=== PATIENT | male | born 1955 | race Caucasian/White ===

== ENCOUNTER 2022-05-19 14:57 | Outpatient (REF) | payer OTHER, SELFPAY ==
[2022-05-19 15:59] LABS: TSH (W/Ref FT4) 3.44 uIU/mL (0.36-3.74)
== END 2022-05-19 14:58 | disposition home or self-care (01) ==
LOC: LBN 14:57
PROVIDERS: Visit Provider Physician Assistant Medical
DX: E03.9 Hypothyroidism, unspecified (principal)
CPT/HCPCS: 84443

== ENCOUNTER 2022-09-06 02:52 | Outpatient (CLI) | payer OTHER, SELFPAY ==
[2022-09-06 09:18] LABS: HCT 44.2 % (40.0-50.0); HGB 15.1 g/dL (13.5-17.5); MCH 30.3 pg (27.0-33.0); MCHC 34.2 % (32.0-36.0); MCV 89 fL (80-95); MPV 9.8 fL (8.0-11.0); Platelet Count 233 10^3/uL (130-400); RBC 4.99 10^6/uL (4.36-5.78); RDW 12.5 % (11.8-14.1); RDW-SD 40.6 fL; WBC 8.15 10^3/uL (4.4-10.8)
[2022-09-06 10:12] LABS: ALT 25 U/L (16-63); AST 24 U/L (15-37); Albumin 3.3 g/dL (3.4-5.0); Alkaline Phosphatase 67 U/L (46-116); Anion Gap 8.2 mmol/L (3-11); BUN 16 mg/dL (7-18); Bilirubin, Total 0.7 mg/dL (0.2-1.0); CO2 23.8 mmol/L (21.0-32.0); CREATININE 1.1 mg/dL (0.70-1.30); Calcium 8.5 mg/dL (8.5-10.1); Calculated LDL 142 mg/dL (<100); Chloride 105 mmol/L (98-107); Cholesterol 199 mg/dL (<200); Estimated GFR 73.12 (mL/min/1.73m2); Glucose 101 mg/dL (74-106); HDL Cholesterol 44 mg/dL (40-60); Sodium 137 mmol/L (136-145); TSH (W/Ref FT4) 4.56 uIU/mL (0.36-3.74); Total Protein 7.5 g/dL (6.4-8.2); Triglyceride 67 mg/dL (<150)
[2022-09-06 10:42] LABS: FREE T4 1.06 ng/dL (0.76-1.46)
[2022-09-07 10:23] LABS: Hepatitis C Ab w Rflx HCV PCR Negative (Negative)
== END 2022-09-06 02:53 | disposition home or self-care (01) ==
LOC: LBO 02:52
PROVIDERS: PCP Nurse Practitioner; Visit Provider Nurse Practitioner
DX: E03.9 Hypothyroidism, unspecified (principal); I10 Essential (primary) hypertension; E66.8 Other obesity; Z11.59 Encounter for screening for other viral diseases
CPT/HCPCS: 36415; 80053; 80061; 85027; 86803; 84439; 84443

== ENCOUNTER 2022-11-10 08:04 | Outpatient (CLI) | payer OTHER, SELFPAY ==
--- NOTE | 2022-11-10 08:00 | RT.EKG_ITS ---
APPROVED REPORT Exam: Resting ECG Reason for Exam: EVALUATION OF CARDIAC STATUS PRIOR TO MED Patient Location: O HR:88 bpm ECG Measurements Heart Rate 88 AXIS VT 145 P 73 QRSd 80 QRS 48 QT 352 T 61 QTc 426 Conclusion Sinus rhythm...normal P axis, V-rate 50- 99 Normal Electrocardiogram
== END 2022-11-10 08:05 | disposition home or self-care (01) ==
LOC: DI.KIM 08:04
PROVIDERS: PCP Nurse Practitioner; Visit Provider Nurse Practitioner
DX: Z51.81 Encounter for therapeutic drug level monitoring (principal)
CPT/HCPCS: 93010

== ENCOUNTER 2023-01-16 13:20 | Outpatient (CLI) | payer OTHER, SELFPAY ==
--- NOTE | 2023-01-16 10:53 | DI.RAD_ITS ---
Exam(s) XR RIBS RT W PA LAT CHEST EXAM: XR RIBS RT W PA LAT CHEST CLINICAL HISTORY: right rib/chest pain for 2 mos, R07.81-PLEURODYNIA TECHNIQUE: 2D digital imaging was performed. COMPARISON: No exams were available for comparison FINDINGS: RIBS 3 VIEWS-right There are no obvious acute rib fractures evident. No lytic rib lesions identified. CXR- 2 VIEWS: No lung contusion or pneumothorax. There is no pleural effusion evident. Heart size is normal and there is no significant mediastinal widening. IMPRESSION: 1. No obvious rib fractures evident. Also no significant rib lesions. 2. No ipsilateral lung nor pleural abnormality evident. No pneumothorax. DATA REPOSITORY: RADIATION DOSE DELIVERED:
== END 2023-01-16 13:40 ==
LOC: DI 13:22
PROVIDERS: PCP Nurse Practitioner; Visit Provider Nurse Practitioner
DX: R07.81 Pleurodynia (principal)
CPT/HCPCS: 71046; 71100

== ENCOUNTER 2023-02-27 03:00 | Outpatient (CLI) | payer OTHER, SELFPAY ==
[2023-02-27 15:28] LABS: Anion Gap 8.9 mmol/L (3-11); BUN 23 mg/dL (7-18); CO2 25.1 mmol/L (21.0-32.0); CREATININE 1.3 mg/dL (0.70-1.30); Calcium 8.8 mg/dL (8.5-10.1); Chloride 105 mmol/L (98-107); Estimated GFR 59.47 (mL/min/1.73m2); Glucose 146 mg/dL (74-106); Potassium 3.7 mmol/L (3.5-5.1); Sodium 139 mmol/L (136-145); TSH (W/Ref FT4) 5.09 uIU/mL (0.36-3.74)
[2023-02-27 15:48] LABS: FREE T4 1.03 ng/dL (0.76-1.46)
== END 2023-02-27 03:01 | disposition home or self-care (01) ==
LOC: LBO 03:00
PROVIDERS: PCP Nurse Practitioner; Referring Provider Nurse Practitioner; Visit Provider Nurse Practitioner
DX: E03.9 Hypothyroidism, unspecified (principal)
CPT/HCPCS: 36415; 80048; 84439; 84443

== ENCOUNTER → 2024-02-22 13:52 | Outpatient (BNVA) | payer MEDICARE, SELFPAY | PROVIDERS: PCP Nurse Practitioner; Referring Provider Nurse Practitioner; Visit Provider Physical Therapy Assistant | DX: Z12.11 Encounter for screening for malignant neoplasm of colon (principal); R19.5 Other fecal abnormalities; Z80.0 Family history of malignant neoplasm of digestive organs ==

== ENCOUNTER 2024-03-07 09:17 | Day surgery (SDC) | payer MEDICARE, SELFPAY ==
[2024-03-07 09:33] VITALS: BP 133/65; PULSE 55; RESP 16; TEMP 36.3; O2SAT 98
[2024-03-07] MEDS: Lactated Ringers 1,000 ML 80 ML IV (09:46)
[2024-03-07 10:06] VITALS: BMI 29.6
--- NOTE | 2024-03-07 10:06 | W.ANESPRE ---
General Info Date of Service Date Performed: 03/07/24 Height: 5 ft 7 in Weight: 85.9 kg Body Mass Index (BMI): 29.6 Surgical Procedure: Operation Date: 03/07/24 10:35 Proposed Procedure Side Surgeon p Melvin Vaughn MD Meds Allergies and Home Medications Allergies Allergy/AdvReac Type Severity Reaction Status Date / Time No Known Allergies Allergy Verified 03/07/24 09:31 Home Medication Medication Instructions Recorded valacyclovir 500 mg tablet 500 mg PO DAILY #90 tabs 08/21/23 levothyroxine 25 mcg tablet 25 mcg PO DAILY #90 tabs 11/13/23 sildenafil 100 mg tablet 100 mg PO DAILY PRN sexual 01/15/24 activity #20 tabs bisacodyl 5 mg tablet,delayed 5 mg PO ONCE Colonoscopy Bowel 02/29/24 release Prep #4 tabs polyethylene glycol 3350 17 238 g PO ONCE #238 grams 02/29/24 gram/dose oral powder Current Visit Medications: Current Medications Generic Name Dose Route Start Last Admin Trade Name Freq PRN Reason Stop Dose Admin Ringer's Solution 1,000 mls @ 80 mls/hr 03/07/24 06:00 03/07/24 09:46 IV 03/07/24 23:59 80 mls/hr INFUSION JAN Administration IV Miscellaneous Supplies 1 each 03/07/24 06:00 Iv Access IV 03/07/24 23:59 DIRECTED JAN Sodium Chloride 0 ml 03/07/24 06:00 Normal Saline Flush 10 Ml Syr IV 03/07/24 23:59 PRN PRN Sodium Chloride 0 ml 03/07/24 06:00 Normal Saline 10 Ml Vial IJ 03/07/24 23:59 DIRECTED PRN Sterile Water 0 ml 03/07/24 06:00 Water,Injection,Sterile 10 Ml Vial IJ 03/07/24 23:59 DIRECTED PRN PFSH Active Problems Active Problems: Problem Status Onset Code COVID ~09/27/22 U07.1 Glaucoma H40.9 Induration penis plastica N48.6 Sleep apnea, unspecified G47.30 Preglaucoma, unspecified, bilateral H40.003 Herpesviral infection, unspecified B00.9 Hypothyroidism, unspecified E03.9 Localized swelling, mass and lump, unspecified upper limb R22.30 Lesion of ulnar nerve, left upper limb G56.22 Other bursitis of elbow, left elbow M70.32 Lateral epicondylitis, left elbow M77.12 Surgical History Surgical History H/O vasectomy 1988 S/P tonsillectomy Tobacco Smoking/Tobacco Use Status: Former Tobacco Use Alcohol Alcohol Intake: never Substance Use Substance use: Never Substance use type: does not use Counseling provided: none Vital Signs and Lab Results Vital Signs Most Recent Vital Signs in EMR: Most Recent Vital Signs Temp Pulse Resp BP Pulse Ox 36.3 C L 55 L 16 133/65 98 03/07/24 09:33 03/07/24 09:33 03/07/24 09:33 03/07/24 09:33 03/07/24 09:33 Lab Results Blood Type / Crossmatch: No Data to Display Complete Blood Count: No Data to Display Complete Metabolic Panel: No Data to Display Liver Function Panel: No Data to Display Coagulation Panel: No Data to Display Cardiac Panel: No Data to Display Arterial Blood Gas: No Data to Display Venous Blood Gas: No Data to Display Pancreas Panel: No Data to Display Thyroid Panel: No Data to Display Infectious Disease: No Data to Display Blood Cultures: No Data to Display Toxicology Panel: No Data to Display Imaging and Studies Imaging and Studies Study information below may be from another EMR and interpreted by another provider. Please see original notes in EMR for more complete details. EKG Summary: Conclusion Sinus rhythm...normal P axis, V-rate 50- 99 Normal Electrocardiogram 11/10/22 Anesthesia Assessment and Plan Anesthesia History Personal History: No History of Anesthesia Complications Family History: No Family History of Anesthesia Complications Exercise Tolerance Exercise Tolerance: Metabolic Equivalents>4 Pertinent Negatives Pertinent Negatives: No Symptoms of GERD, No Major Cardiovascular Symptoms or Complaints, No Major Pulmonary Symptoms or Complaints and No History of CVA/TIA Cardiac & Pulmonary Exam Cardiac Exam: Normal S1/S2 Heart Sounds Pulmonary Exam: Clear Bilateral Breath Sounds Implantable Cardiac Device Does patient have a Pacemaker or an ICD?: No Airway Exam Known Difficult Airway: No Mallampati Class: 2 Mouth Opening: Normal (> 3cm) Thyromental Distance: Greater than 3 cm Neck Range of Motion: Full ROM Neck Circumference: Normal Teeth Condition: Normal Dentition ASA Classification ASA Score: ASA 2 Emergency Case?: No NPO Status NPO Status: NPO Clears >2 hours, Solids >8 hours and NPO Breast Milk >4 hours Anesthesia Plan Resuscitation Status: Full Code Anesthesia Technique: General Anesthesia Airway Planned: Natural Airway Monitors Used: Standard Monitors Preoperative Comments:: 69 y/o male with history of sleep apnea, hypothyroidisim and glaucoma presents for colonoscopy screening pre-op. He is accompanied by his partner Marielle. He recently has a (+) cologuard. He describes his last Colonoscopy was at [facility].
--- NOTE | 2024-03-07 10:14 | COLE_ITS ---
Date of service: 03/07/24 Time of Service: 10:14 Colonoscopy Report Procedure Description: PROCEDURES PERFORMED: 1. Colonoscopy with hot snare polypectomy x 4 2. Submucosal injection x 1 3. Endoscopic clip application/placement x 2 4. Ablation/fulguration/destruction of colon polyps x 5 PREOPERATIVE DIAGNOSIS: Surveillance colonoscopy, colon polyps POSTOPERATIVE DIAGNOSIS: Colon polyps, diverticulosis, grade 1 internal hemorrhoids SURGEON: Jesse Vaughn MD INDICATION for procedure: The patient is a 69-year-old man with a personal history of polyps removed almost 20 years ago at his last colonoscopy. He has a family history of colon cancer in an aunt. He does not have symptoms. He recently did a Cologuard test which was positive although a Cologuard test is not applicable for him considering his history. FINDINGS: In the ascending colon a 3-5 mm sessile adenomatous?appearing polyp was removed with hot snare technique. In the early transverse colon a large 15- 20 mm flat polyp was removed piecemeal with hot snare technique. The perimeter was ablated with the tip of the hot snare. Because the mucosal defect was relatively large, 2 endoscopic clips were placed to reapproximate the mucosal edges. Submucosal injection was performed about 1-2 cm away from the polypectomy site in 2 locations to tattoo the site for future reference. In the proximal rectum to other pedunculated 5-7 mm polyps were removed with hot snare technique. 5 flat, 2-3 mm hyperplastic?appearing polyps were ablated with the tip of the hot snare because of the other polyp findings. In the sigmoid colon is moderate diverticular disease without active inflammation. There is grade 1 internal hemorrhoids. SURVEILLANCE interval/FOLLOW-UP: Pending path results. If any dysplasia or aggressive features such as sessile serrated or tubulovillous findings at the large polyp resection, then the site should be reassessed in the next 3 to 6 months. If simple adenoma at the large site it can be followed up in 3 years. All other polyps were resected adequately and in 1 piece. SPECIMENS: yes EBL: Minimal COMPLICATIONS: None QUALITY of prep: Excellent Procedure in detail: The patient gave written consent and was in agreement with the indications, the potential risks as well as the benefits of the procedure. They were taken to the endoscopy suite and laid in the left lateral decubitus position. A timeout was performed and anesthesia was administered which was tolerated well. I started the procedure. Digital rectal and visual examination was performed and grossly within normal limits. A well-lubricated flexible colonoscope was then introduced and passed without any notable difficulty all the way to the cecum identified by the ileocecal valve and the appendiceal orifice. The scope was then slowly withdrawn with the above-noted findings. The patient tolerated the procedure well and was taken to the PACU in hemodynamically stable condition.
--- NOTE | 2024-03-07 10:15 | W.PM.DSUDISC ---
Date of service: 03/07/24 Time of Service: 10:15 Discharge Plan Disposition Patient Disposition: Home Condition: Good Discharge Details Attending Provider: Que Vaughn Primary Care Provider: Trinidad Allen Home Meds and New Rx's Prescriptions: No Action valacyclovir 500 mg tablet 500 mg PO DAILY Qty: 90 0RF levothyroxine 25 mcg tablet 25 mcg PO DAILY Qty: 90 1RF sildenafil 100 mg tablet 100 mg PO DAILY PRN (Reason: sexual activity) Qty: 20 1RF Rx Instructions: administer 30 minutes to 4 hours before activity bisacodyl 5 mg tablet,delayed release (DR/EC) 5 mg PO ONCE Qty: 4 0RF Rx Instructions: Per Colonoscopy bowel prep instructions polyethylene glycol 3350 17 gram/dose powder 238 g PO ONCE Qty: 238 0RF Rx Instructions: For Colonoscopy bowel prep, as directed by office Discharge Instructions Additional Instructions: FINDINGS: Multiple polyps were found in your colon today and removed. Depending on the pathology results of these polyps, you may need to do another colonoscopy in 3 to 6 months. If the polyps are the most common and usual type, then you will need to do another colonoscopy in 3 years. Cologuard or other similar testing in the future is not an option for you. Benign findings today included diverticular disease and hemorrhoid disease. These are very common, benign, and rarely cause problems that require intervention. Activity:: Activity as Tolerated Diet:: As Tolerated
--- NOTE | 2024-03-07 10:26 | BOWEL_PTH ---
PATIENT: Rickie James LOC: [facility] U#:[id number] AGE/SX: 69/M ROOM: RE03/07/[address]: Que Vaughn : 1955 BED: DIS: 03/07/2024 SPEC #: [id number] RECD: 03/07/24 11:06 STATUS: [facility] #: [id number] NARAYAN: 03/07/24 10:[address]: Que Vaughn DEPT: Surgical Specimen RECD BY: Kassandra Haynes ENTERED: 03/07/24 11:09 SP TYPE: Bowel OTHR DR: Trinidad Allen APRN Tissues: 1 - BIOPSY BOWEL 2 - BIOPSY BOWEL 3 - BIOPSY BOWEL 4 - BIOPSY BOWEL Procedures: GROSS AND MICRO LEVEL 4 Comments: [id number]
[2024-03-07] MEDS: Endoscopic Tattoo 5 ML SYR IJ (10:46)
[2024-03-07 10:56] VITALS: BP 115/68; PULSE 63; RESP 14; TEMP 36.4; O2SAT 96
[2024-03-07 11:11] VITALS: BP 134/77; PULSE 64; RESP 16; TEMP 36.5; O2SAT 96
--- NOTE | 2024-03-07 11:40 | W.ANESPOSTOP ---
Postoperative Evaluation Date, Time and Location Date Performed: 03/07/24 Time Performed: 11:40 Patient Location: Day Surgery Unit Vital Signs Most Recent Imported Vital Signs: Most Recent Vital Signs Temp Pulse Resp BP Pulse Ox 36.5 C 64 16 134/77 96 03/07/24 11:11 03/07/24 11:11 03/07/24 11:11 03/07/24 11:11 03/07/24 11:11 Pain Score Most Recent Pain Score: Most Recent Pain Score Pain Level 0 03/07/24 11:11 Assessment Mental Status: Awake (Alert & Oriented to Patient Baseline) Airway and Respiratory Function: Patent airway with normal (patient baseline) respiratory exam Cardiovascular Function: Hemodynamically Stable Hydration Status: Adequately Hydrated Nausea & Vomiting: No Nausea or Vomiting Pain: Pt. Denies Any Pain Peripheral Nerve Block: Patient did not receive a nerve block
== END 2024-03-07 11:45 | disposition home or self-care (01) ==
PROVIDERS: PCP Nurse Practitioner; Visit Provider Student in an Organized Health Care Education/Training Program
PROC: 0DJD8ZZ Inspection of Lower Intestinal Tract, Via Natural or Artificial Opening Endoscopic (ICD-10-PCS; CPT 45378; principal; 2024-03-07 10:30)
DX: Z12.11 Encounter for screening for malignant neoplasm of colon (principal); G47.30 Sleep apnea, unspecified; D12.2 Benign neoplasm of ascending colon; K64.0 First degree hemorrhoids; K57.30 Diverticulosis of large intestine without perforation or abscess without bleeding; Z80.0 Family history of malignant neoplasm of digestive organs; K62.1 Rectal polyp; D12.3 Benign neoplasm of transverse colon
CPT/HCPCS: 45388; 45381; 45385; 00123; 88305; J2001; J2704

== ENCOUNTER → 2024-04-17 10:56 | Outpatient (BNVA) | payer MEDICARE, SELFPAY | PROVIDERS: PCP Nurse Practitioner; Referring Provider Nurse Practitioner; Visit Provider Student in an Organized Health Care Education/Training Program | DX: D12.6 Benign neoplasm of colon, unspecified (principal) | CPT/HCPCS: 99213 ==

== ENCOUNTER 2024-05-06 02:17 | Outpatient (CLI) | payer MEDICARE, SELFPAY ==
[2024-05-06 10:09] LABS: ALT 34 U/L (16-63); AST 21 U/L (15-37); Albumin 3.4 g/dL (3.4-5.0); Alkaline Phosphatase 73 U/L (46-116); Anion Gap 10.6 mmol/L (3-11); BUN 20 mg/dL (7-18); Bilirubin, Total 0.37 mg/dL (0.2-1.0); CO2 25.4 mmol/L (21.0-32.0); CREATININE 1.1 mg/dL (0.70-1.30); Calcium 8.5 mg/dL (8.5-10.1); Calculated LDL 123 mg/dL (<100); Chloride 107 mmol/L (98-107); Cholesterol 189 mg/dL (<200); Estimated GFR 72.22 (mL/min/1.73m2); Glucose 96 mg/dL (74-106); HDL Cholesterol 48 mg/dL (40-60); Potassium 4.2 mmol/L (3.5-5.1); Sodium 143 mmol/L (136-145); TSH (W/Ref FT4) 5.44 uIU/mL (0.36-3.74); Total Protein 7.1 g/dL (6.4-8.2); Triglyceride 90 mg/dL (<150)
== END 2024-05-06 02:18 | disposition home or self-care (01) ==
LOC: LBO 02:17
PROVIDERS: Absent Provider Nurse Practitioner; PCP Nurse Practitioner; Referring Provider Nurse Practitioner; Visit Provider Nurse Practitioner
DX: E03.9 Hypothyroidism, unspecified (principal); Z13.220 Encounter for screening for lipoid disorders
CPT/HCPCS: 36415; 80053; 80061; 84439; 84443

== ENCOUNTER 2024-06-27 09:56 | Outpatient (CLI) | payer MEDICARE, SELFPAY ==
[2024-06-27 11:10] LABS: Bilirubin Negative (Negative); Blood Negative (Negative); Clarity Clear (Clear); Glucose Negative (Negative); Ketones Negative (Negative); Leukocyte Esterase Negative (Negative); Nitrite Negative (Negative); Specific Gravity 1.025 (1.005-1.025); Urobilinogen 0.2 mg/dL (Up to 0.2); pH 5.5 (5-8)
[2024-06-27 13:33] LABS: Hemoglobin A1C 5.2 % (<5.7)
[2024-06-27 18:41] LABS: PSA, Screening 2.8 ng/mL (<=6.5)
== END 2024-06-27 09:57 | disposition home or self-care (01) ==
LOC: LBO 10:02
PROVIDERS: PCP Nurse Practitioner; Visit Provider Nurse Practitioner
DX: R35.0 Frequency of micturition (principal); R73.01 Impaired fasting glucose
CPT/HCPCS: 36415; 84153; 81003; 83036

== ENCOUNTER 2024-09-16 06:18 | Day surgery (SDC) | payer MEDICARE, SELFPAY ==
[2024-09-16 06:15] VITALS: BP 139/64; PULSE 55; RESP 18; TEMP 36.3; O2SAT 97
[2024-09-16] MEDS: Normal Saline Flush 10 ML SYR IV (06:50)
--- NOTE | 2024-09-16 07:06 | W.ANESPRE ---
General Info Date of Service Date Performed: 09/16/24 Height: 5 ft 6.75 in Weight: 85.5 kg Body Mass Index (BMI): 29.7 Surgical Procedure: Operation Date: 09/16/24 07:35 Proposed Procedure Side Surgeon p Colonoscopy Que Vaughn MD Actual Procedure Side Surgeon p Colonoscopy Not Applicable Que Vaughn MD Pre-Op Diagnosis Post-Op Diagnosis screening for malignant neoplasm of colon Meds Allergies and Home Medications Allergies Allergy/AdvReac Type Severity Reaction Status Date / Time No Known Allergies Allergy Verified 09/06/24 12:22 Home Medication ?Medication ?Instructions ?Recorded brinzolamide 1 % eye 1 drp ophthalmic (eye) BID 04/15/24 drops,suspension levothyroxine 25 mcg tablet 25 mcg PO DAILY #90 tabs 04/15/24 valacyclovir 500 mg tablet 500 mg PO DAILY #90 tabs 04/15/24 sildenafil 100 mg tablet 100 mg PO DAILY PRN sexual 06/26/24 activity #20 tabs Current Visit Medications: Current Medications Generic Name Dose Route Start Last Admin Trade Name Freq PRN Reason Stop Dose Admin Ringer's Solution 1,000 mls @ 80 mls/hr 09/16/24 06:00 IV 10/13/24 23:59 INFUSION JAN IV Miscellaneous Supplies 1 each 09/16/24 06:00 Iv Access IV 10/13/24 23:59 DIRECTED JAN Sodium Chloride 0 ml 09/16/24 06:00 09/16/24 06:50 Normal Saline Flush 10 Ml Syr IV 10/13/24 23:59 10 ml PRN PRN Administration Sodium Chloride 0 ml 09/16/24 06:00 Normal Saline 10 Ml Vial IJ 10/13/24 23:59 DIRECTED PRN Sterile Water 0 ml 09/16/24 06:00 Water,Injection,Sterile 10 Ml Vial IJ 10/13/24 23:59 DIRECTED PRN PFSH Active Problems Active Problems: Problem Status Onset Code Sessile serrated polyp of colon Acute D12.6 Primary open angle glaucoma Acute ~11/2023 H40.1190 Tubular adenoma of colon Acute ~02/2024 D12.6 COVID Acute ~09/27/22 U07.1 Glaucoma Chronic H40.9 Induration penis plastica Chronic N48.6 Sleep apnea, unspecified Chronic G47.30 Preglaucoma, unspecified, bilateral Chronic H40.003 Herpesviral infection, unspecified Chronic B00.9 Hypothyroidism, unspecified Chronic E03.9 Localized swelling, mass and lump, unspecified upper limb Chronic R22.30 Lesion of ulnar nerve, left upper limb Chronic G56.22 Other bursitis of elbow, left elbow Chronic M70.32 Lateral epicondylitis, left elbow Chronic M77.12 Surgical History Surgical History History of colonoscopy (~02/2024) H/O vasectomy 1988 S/P tonsillectomy Tobacco Smoking/Tobacco Use Status: Former Tobacco Use Alcohol Alcohol Intake: never Substance Use Substance use: Never Substance use type: does not use Counseling provided: none Vital Signs and Lab Results Vital Signs Most Recent Vital Signs in EMR: Most Recent Vital Signs Temp Pulse Resp BP Pulse Ox 36.3 C L 55 L 18 139/64 97 09/16/24 06:15 09/16/24 06:15 09/16/24 06:15 09/16/24 06:15 09/16/24 06:15 Lab Results Blood Type / Crossmatch: No Data to Display Complete Blood Count: No Data to Display Complete Metabolic Panel: No Data to Display Liver Function Panel: No Data to Display Coagulation Panel: No Data to Display Cardiac Panel: No Data to Display Arterial Blood Gas: No Data to Display Venous Blood Gas: No Data to Display Pancreas Panel: No Data to Display Thyroid Panel: No Data to Display Infectious Disease: No Data to Display Blood Cultures: No Data to Display Toxicology Panel: No Data to Display Imaging and Studies Imaging and Studies Study information below may be from another EMR and interpreted by another provider. Please see original notes in EMR for more complete details. EKG Summary: Conclusion Sinus rhythm...normal P axis, V-rate 50- 99 Normal Electrocardiogram 11/10/22 Anesthesia Assessment and Plan Anesthesia History Personal History: No History of Anesthesia Complications Family History: No Family History of Anesthesia Complications Exercise Tolerance Exercise Tolerance: Metabolic Equivalents>4 Pertinent Negatives Pertinent Negatives: No Symptoms of GERD, No Major Cardiovascular Symptoms or Complaints and No Major Pulmonary Symptoms or Complaints Cardiac & Pulmonary Exam Cardiac Exam: Normal S1/S2 Heart Sounds Pulmonary Exam: Clear Bilateral Breath Sounds Implantable Cardiac Device Does patient have a Pacemaker or an ICD?: No Airway Exam Known Difficult Airway: No Mallampati Class: 2 Mouth Opening: Normal (> 3cm) Thyromental Distance: Greater than 3 cm Neck Range of Motion: Full ROM Neck Circumference: Normal Teeth Condition: Normal Dentition ASA Classification ASA Score: ASA 2 Emergency Case?: No NPO Status NPO Status: NPO Clears >2 hours, Solids >8 hours Anesthesia Plan Resuscitation Status: Full Code Anesthesia Technique: General Anesthesia Airway Planned: Natural Airway Monitors Used: Standard Monitors
[2024-09-16 07:10] VITALS: BMI 29.7
--- NOTE | 2024-09-16 07:36 | SCONE_ITS ---
Date of service: 09/16/24 Time of Service: 07:36 Assessment and Plan Assessment and plan (1) Sessile serrated polyp of colon: Status: Acute Assessment and plan: 69-year-old man with history of advanced and large polyp removed needs a repeat colonoscopy for surveillance. Overall plan: Colonoscopy History of Present Illness Narrative: 69-year-old man is known to me from prior colonoscopy. He had a sessile serrated polyp that was quite large removed from the transverse colon. He is due for short?term surveillance. He has no symptoms of concern. PFS All Active Problems Sessile serrated polyp of colon (Acute) Primary open angle glaucoma (Acute ~11/2023) 12/01/23 [facility] Tubular adenoma of colon (Acute ~02/2024) COVID (Acute ~09/27/22) Glaucoma (Chronic) Induration penis plastica (Chronic) Sleep apnea, unspecified (Chronic) Doesn't tolerate CPAP. Has had surgery years ago, tonsilectomy Preglaucoma, unspecified, bilateral (Chronic) Herpesviral infection, unspecified (Chronic) Hypothyroidism, unspecified (Chronic) Localized swelling, mass and lump, unspecified upper limb (Chronic) Lesion of ulnar nerve, left upper limb (Chronic) Other bursitis of elbow, left elbow (Chronic) Lateral epicondylitis, left elbow (Chronic) Surgical History History of colonoscopy (~02/2024) H/O vasectomy 1988 S/P tonsillectomy Family History Brother Alcohol use disorder Cancer Thyroid Father Alcohol use disorder Depression Sister Asthma Depression Mother Depression Social History (Updated 04/15/24 @ 08:11 by Marielle Martinez LPN) Smoking/Tobacco Use Status: Former Tobacco Use tobacco type: cigarettes Quit Date: 10/16/89 Tobacco: How many years used: 20 Smoking risk assessment performed?: Yes Alcohol Intake: never Drug use: Never Substance use type: does not use Counseling given: No Counseling provided: none Adopted: No Caregiver/Support person: No Foster care: No Household members: none Housing: house Number of Children: 2 number of grandchildren: 3 Communication Needs: Hard of Hearing Education Level: master's degree Do you need help understanding health information?: Rarely current occupation: retired from [employer] Pets and animals: No Sexually active: No Do you think of yourself as: straight/heterosexual Current gender identity: male What is your relationship status?: How often do you talk on the phone with friends or family?: three or more times per week How often do you get together with friends or relatives?: three or more times per week Do you belong to any clubs or organized social groups?: yes Panel score (0-1 are the most socially isolated patients): 2 What type of physical activity do you participate in: walking and swimming Duration: 60-90 minutes/day Frequency: daily Bibi/Caodaism: Non adventism Special bibi needs: No Seatbelt use: always Helmet use: Yes Helmet use: sometimes Drive intox or ride w/intox cross country truck driver: No Working smoke detector in home: Yes Carbon monox detector in home: Yes Do you feel safe at home: Yes Do you feel safe in your relationship?: Yes Exam Narrative Exam Narrative: General: Nontoxic, comfortable and interactive Neuro: Alert and oriented x 3 Psych: Good mood and affect, good insight and understanding Chest: Nonlabored breathing, no wheezing Heart: Regular Results Last Vital Signs Temp 97.3 F L 09/16/24 06:15 Pulse 55 L 09/16/24 06:15 Resp 18 09/16/24 06:15 BP 139/64 09/16/24 06:15 Pulse Ox 97 09/16/24 06:15
--- NOTE | 2024-09-16 07:52 | BOWEL_PTH ---
PATIENT: Rickie James LOC: [facility] U#:[id number] AGE/SX: 69/M ROOM: RE09/16/[address]: Que Vaughn : 1955 BED: DIS: 09/16/2024 SPEC #: [id number] RECD: 09/16/24 12:54 STATUS: [facility] RE #: [id number] NARAYAN: 09/16/24 07:[address]: Que Vaughn DEPT: Surgical Specimen RECD BY: Martha Wilks ENTERED: 09/16/24 12:55 SP TYPE: Bowel OTHR DR: Trinidad Allen APRN Tissues: 1 - BIOPSY BOWEL 2 - BIOPSY BOWEL Procedures: GROSS AND MICRO LEVEL 4 Comments: [id number]
--- NOTE | 2024-09-16 08:01 | W.PM.OP ---
Operative Note Operative Note Refer to Anesthesia Record Procedure Description: PROCEDURES PERFORMED: 1. Colonoscopy with hot snare polypectomy 2. Cold forceps polypectomy PREOPERATIVE DIAGNOSIS: Surveillance colonoscopy, sessile serrated polyps POSTOPERATIVE DIAGNOSIS: Colon polyps, minimal diverticulosis, hyperplastic rectal polyps, grade 1 internal hemorrhoids SURGEON: Jesse Vaughn MD INDICATION for procedure: The patient is a 69-year-old man due for surveillance colonoscopy. His last colonoscopy was about 6 months ago and a relatively large sessile serrated adenomatous polyp was removed prompting another colonoscopy to ensure no regrowth. FINDINGS: The prior polypectomy site which is in the early transverse colon, near the hepatic flexure, was easily identified by the scar present. No polyp regrowth. In the transverse colon a novel 3-5 mm sessile polyp was removed with hot snare technique. It was fleshy colored and very flat and difficult to see and I suspect this will be another sessile serrated polyp. Minimal diverticular changes in the sigmoid colon only. In the rectum, a couple of small flat polyps were seen again and 1 was removed with cold forceps technique to confirm benign histology considering the history. These polyps appear to be hyperplastic visually. Grade 1 internal hemorrhoids noted. SURVEILLANCE interval/FOLLOW-UP: 3 years. SPECIMENS: yes EBL: Minimal COMPLICATIONS: None QUALITY of prep: Excellent Procedure in detail: The patient gave written consent and was in agreement with the indications, the potential risks as well as the benefits of the procedure. They were taken to the endoscopy suite and laid in the left lateral decubitus position. A timeout was performed and anesthesia was administered which was tolerated well. I started the procedure. Digital rectal and visual examination was performed and grossly within normal limits. A well-lubricated flexible colonoscope was then introduced and passed without any notable difficulty all the way to the cecum identified by the ileocecal valve and the appendiceal orifice. The scope was then slowly withdrawn with the above-noted findings. The patient tolerated the procedure well and was taken to the PACU in hemodynamically stable condition. Date of Procedure: 09/16/24
--- NOTE | 2024-09-16 08:03 | W.PM.DSUDISC ---
Date of service: 09/16/24 Discharge Plan Disposition Patient Disposition: Home Condition: Good Discharge Details Attending Provider: Que Vaughn Primary Care Provider: Trinidad Allen Home Meds and New Rx's Prescriptions: No Action levothyroxine 25 mcg tablet 25 mcg PO DAILY Qty: 90 3RF valacyclovir 500 mg tablet 500 mg PO DAILY Qty: 90 3RF sildenafil 100 mg tablet 100 mg PO DAILY PRN (Reason: sexual activity) Qty: 20 6RF Rx Instructions: administer 30 minutes to 4 hours before activity brinzolamide 1 % drops,suspension 1 drp ophthalmic (eye) BID Rx Instructions: OU Discharge Instructions Activity:: Activity as Tolerated Diet:: As Tolerated DS: Diagnosis Discharge Diagnosis (1) Sessile serrated polyp of colon: Status: Acute Asessment and Plan: The prior polyp removal site was found. Everything looks excellent there. A new, small polyp was found separately in a different location and removed. Nothing to worry about. You should repeat a full colonoscopy in 3 years.
[2024-09-16 08:04] VITALS: BP 119/77; PULSE 67; RESP 20; TEMP 36.3; O2SAT 97
--- NOTE | 2024-09-16 08:19 | W.ANESPOSTOP ---
Postoperative Evaluation Date, Time and Location Date Performed: 09/16/24 Time Performed: 08:16 Patient Location: Day Surgery Unit Vital Signs Most Recent Imported Vital Signs: Most Recent Vital Signs Temp Pulse Resp BP Pulse Ox 36.3 C L 67 20 119/77 97 09/16/24 08:04 09/16/24 08:04 09/16/24 08:04 09/16/24 08:04 09/16/24 08:04 Pain Score Most Recent Pain Score: Most Recent Pain Score Pain Level 0 09/16/24 08:04 Assessment Mental Status: Awake (Alert & Oriented to Patient Baseline) Airway and Respiratory Function: Patent airway with normal (patient baseline) respiratory exam Cardiovascular Function: Hemodynamically Stable Hydration Status: Adequately Hydrated Nausea & Vomiting: No Nausea or Vomiting Pain: Pt. Denies Any Pain Peripheral Nerve Block: Patient did not receive a nerve block
[2024-09-16 08:34] VITALS: BP 129/70; PULSE 51; RESP 20; TEMP 36.3; O2SAT 97
== END 2024-09-16 08:55 | disposition home or self-care (01) ==
PROVIDERS: PCP Nurse Practitioner; Visit Provider Student in an Organized Health Care Education/Training Program
PROC: 0DJD8ZZ Inspection of Lower Intestinal Tract, Via Natural or Artificial Opening Endoscopic (ICD-10-PCS; CPT 45378; principal; 2024-09-16 07:30)
DX: Z12.11 Encounter for screening for malignant neoplasm of colon (principal); K57.30 Diverticulosis of large intestine without perforation or abscess without bleeding; K62.1 Rectal polyp; K64.0 First degree hemorrhoids; D12.3 Benign neoplasm of transverse colon
CPT/HCPCS: 45385; 45380; 00123; 88305; J2003; J2704

== ENCOUNTER 2024-12-11 11:10 | Outpatient (CLI) | payer MEDICARE, SELFPAY ==
--- NOTE | 2024-12-11 11:25 | DI.RAD_ITS ---
Exam(s) XR CHEST 2V PA LATERAL EXAM: XR CHEST 2V PA LATERAL CLINICAL HISTORY: cough, SOB for one week R05.9 COUGH J06.9 ACUTE URI TECHNIQUE: 2D digital imaging was performed. Two views. COMPARISON: CT CT CHEST WO from 03/02/2023 FINDINGS: HEART: Normal size. Aorta: Not dilated. PULMONARY VASCULATURE: Normal. MEDIASTINUM: Unremarkable. LUNGS: Clear. PLEURAL SPACE: No pleural effusion or pneumothorax. BONE:Unremarkable for age. SOFT TISSUES: Unremarkable. IMPRESSION: No acute abnormality. DATA REPOSITORY: RADIATION DOSE DELIVERED:
== END 2024-12-11 11:30 ==
LOC: DI 11:10
PROVIDERS: PCP Nurse Practitioner; Visit Provider Nurse Practitioner
DX: R05.9 Cough, unspecified (principal); J06.9 Acute upper respiratory infection, unspecified
CPT/HCPCS: 71046

== ENCOUNTER → 2025-01-16 08:56 | Outpatient (BNVA) | payer MEDICARE, SELFPAY | PROVIDERS: PCP Nurse Practitioner; Referring Provider Nurse Practitioner; Visit Provider Nurse Practitioner Gerontology | DX: N40.1 Benign prostatic hyperplasia with lower urinary tract symptoms (principal); N13.8 Other obstructive and reflux uropathy; N52.9 Male erectile dysfunction, unspecified | CPT/HCPCS: 51798; 99205; 99215; 73030 ==

== ENCOUNTER 2025-01-16 12:28 | Outpatient (CLI) | payer MEDICARE, SELFPAY ==
--- NOTE | 2025-01-16 | DI.RAD_ITS ---
Exam(s) XR SHOULDER LT COMPLETE 2+V EXAM: XR SHOULDER LT COMPLETE 2+V CLINICAL HISTORY: M25.512 Lt shoulder Pain. TECHNIQUE: 2D digital imaging was performed of the left shoulder. Five images were obtained. AP, G rashey, Y-view and axillary views were obtained. COMPARISON: No exams were available for comparison FINDINGS: BONES: No acute fracture is present. No bony destructive lesion is seen. JOINTS: No dislocation present. There are degenerative changes seen at the glenohumeral joint. The a cromioclavicular joint is well maintained. SOFT TISSUE: Normal. 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 DATA REPOSITORY: RADIATION DOSE DELIVERED:
--- NOTE | 2025-01-16 | DI.RAD_ITS ---
Exam(s) XR SHOULDER RT COMPLETE 2+V EXAM: XR SHOULDER RT COMPLETE 2+V CLINICAL HISTORY: M25.511 Rt shoulder Pain. TECHNIQUE: 2D digital imaging was performed of the right shoulder. Five images were obtained. AP, Grashey, Y-view and axillary views were obtained. COMPARISON: CR XR CHEST 2V PA LATERAL from 12/11/2024 FINDINGS: BONES: No acute fracture is present. No bony destructive lesion is seen. JOINTS: No dislocation present. Mild degenerative changes are seen at the acromioclavicular joint. T he glenohumeral joint is well maintained. Small spurs are seen at the lateral aspect of the acromion . SOFT TISSUE: Normal. IMPRESSION: Mild arthrosis of the right shoulder. DATA REPOSITORY: RADIATION DOSE DELIVERED:
== END 2025-01-16 12:48 ==
LOC: DI 12:29
PROVIDERS: PCP Nurse Practitioner; Visit Provider Physician Assistant Medical
DX: M19.011 Primary osteoarthritis, right shoulder (principal); M19.012 Primary osteoarthritis, left shoulder
CPT/HCPCS: 73030

== ENCOUNTER 2025-01-17 08:04 | Outpatient (CLI) | payer MEDICARE, SELFPAY ==
[2025-01-17 08:02] LABS: HCT 45.4 % (40.0-50.0); HGB 15.9 g/dL (13.5-17.5); MCH 31.2 pg (27.0-33.0); MCV 89 fL (80-95); MPV 10.3 fL (8.0-11.0); Platelet Count 147 10^3/uL (130-400); RDW 13.2 % (11.8-14.1); RDW-SD 43.1 fL; WBC 7.47 10^3/uL (4.4-10.8)
[2025-01-17 08:41] LABS: ALT 856 U/L (16-63); AST 478 U/L (15-37); Albumin 3.1 g/dL (3.4-5.0); Alkaline Phosphatase 98 U/L (46-116); Anion Gap 9.1 mmol/L (3-11); BUN 19 mg/dL (7-18); Bilirubin, Total 1.7 mg/dL (0.2-1.0); CO2 24.9 mmol/L (21.0-32.0); CREATININE 1.1 mg/dL (0.70-1.30); Calcium 8.7 mg/dL (8.5-10.1); Calculated LDL 123 mg/dL (<100); Chloride 109 mmol/L (98-107); Cholesterol 181 mg/dL (<200); Estimated GFR 72.22 (mL/min/1.73m2); Glucose 97 mg/dL (74-106); HDL Cholesterol 44 mg/dL (>or=40); Potassium 4.3 mmol/L (3.5-5.1); Sodium 143 mmol/L (136-145); TSH (W/Ref FT4) 4.54 uIU/mL (0.36-3.74); Total Protein 6.7 g/dL (6.4-8.2); Triglyceride 70 mg/dL (<150)
[2025-01-17 08:59] LABS: FREE T4 1.35 ng/dL (0.76-1.46)
[2025-01-22 13:18] LABS: Testosterone, Total 543 ng/dL (240-950)
== END 2025-01-17 08:05 | disposition home or self-care (01) ==
LOC: LBO 08:05
PROVIDERS: PCP Nurse Practitioner; Visit Provider Nurse Practitioner Gerontology
DX: N40.1 Benign prostatic hyperplasia with lower urinary tract symptoms (principal); N13.8 Other obstructive and reflux uropathy; N52.9 Male erectile dysfunction, unspecified; E03.9 Hypothyroidism, unspecified
CPT/HCPCS: 36415; 80053; 80061; 84403; 85027; 84439; 84443

== ENCOUNTER 2025-01-23 08:50 | Outpatient (CLI) | payer MEDICARE, SELFPAY ==
[2025-01-23 08:55] LABS: ALT 402 U/L (16-63); AST 111 U/L (15-37); Alkaline Phosphatase 106 U/L (46-116); Bilirubin, Direct 0.3 mg/dL (0.0-0.2); Bilirubin, Total 0.9 mg/dL (0.2-1.0); TSH (W/Ref FT4) 2.88 uIU/mL (0.36-3.74); Total Protein 6.5 g/dL (6.4-8.2)
[2025-01-24 09:35] LABS: Hepatitis A Antibody IgM Negative (Negative); Hepatitis B Core Antibody Negative (Negative); Hepatitis B surface Ag Negative (Negative); Hepatitis C Ab w Rflx HCV PCR Negative (Negative)
== END 2025-01-23 08:51 | disposition home or self-care (01) ==
LOC: LBO 08:51
PROVIDERS: PCP Nurse Practitioner; Visit Provider Nurse Practitioner
DX: R79.89 Other specified abnormal findings of blood chemistry (principal); E03.9 Hypothyroidism, unspecified
CPT/HCPCS: 36415; 80076; 86704; 86709; 86803; 87340; 84443

== ENCOUNTER 2025-01-30 08:12 | Outpatient (CLI) | payer MEDICARE, SELFPAY ==
[2025-01-30 09:38] LABS: ALT 309 U/L (16-63); AST 138 U/L (15-37); Albumin 2.9 g/dL (3.4-5.0); Alkaline Phosphatase 80 U/L (46-116); Bilirubin, Direct 0.5 mg/dL (0.0-0.2); Bilirubin, Total 1.5 mg/dL (0.2-1.0); Total Protein 6.5 g/dL (6.4-8.2)
== END 2025-01-30 08:13 | disposition home or self-care (01) ==
LOC: LBO 08:13
PROVIDERS: PCP Nurse Practitioner; Visit Provider Nurse Practitioner
DX: R79.89 Other specified abnormal findings of blood chemistry (principal)
CPT/HCPCS: 36415; 80076

== ENCOUNTER → 2025-02-19 08:27 | Outpatient (BNVA) | payer MEDICARE, SELFPAY | PROVIDERS: PCP Nurse Practitioner; Referring Provider Nurse Practitioner; Visit Provider Nurse Practitioner Gerontology | DX: N52.9 Male erectile dysfunction, unspecified (principal); N40.1 Benign prostatic hyperplasia with lower urinary tract symptoms; N13.8 Other obstructive and reflux uropathy | CPT/HCPCS: 99213 ==

== ENCOUNTER 2025-02-20 07:46 | Outpatient (CLI) | payer MEDICARE, SELFPAY ==
[2025-02-20 08:36] LABS: ALT 348 U/L (16-63); AST 218 U/L (15-37); Albumin 3.4 g/dL (3.4-5.0); Alkaline Phosphatase 110 U/L (46-116); Bilirubin, Direct 0.5 mg/dL (0.0-0.2); Bilirubin, Total 1.2 mg/dL (0.2-1.0); Total Protein 7.1 g/dL (6.4-8.2)
== END 2025-02-20 07:47 | disposition home or self-care (01) ==
LOC: LBO 07:47
PROVIDERS: PCP Nurse Practitioner; Visit Provider Nurse Practitioner
DX: R79.89 Other specified abnormal findings of blood chemistry (principal)
CPT/HCPCS: 36415; 80076

== ENCOUNTER 2025-03-04 00:51 | Outpatient (CLI) | payer MEDICARE, SELFPAY ==
--- NOTE | 2025-03-04 13:00 | DI.US_ITS ---
Exam(s) US ABDOMEN LIMITED EXAM: US ABDOMEN LIMITED CLINICAL HISTORY: evaluate liver R79.89 ABNL FINDINGS OF BLOOD CHEMISTRY, ABNL LFT TECHNIQUE: Ultrasound abdomen performed using standard protocol. COMPARISON: CT CT CHEST WO from 03/02/2023 FINDINGS: LIVER: Normal size. Mildly increasedechogenicity, consistent with mild hepatic steatosis.. No focal liver lesions are seen.. GALLBLADDER: No gallstones are visible. A small amount of layering stones were visible on the prior CT. No evidence of wall thickening. No pericholecystic fluid identified. CALDWELL'S SIGN: Negative. BILIARY SYSTEM: No intrahepatic or extrahepatic biliary ductal dilation. RIGHT KIDNEY: Normal size. No evidence of renal calculi. No evidence of hydronephrosis. No suspicious renal mass. No cyst identified. PANCREAS: Normal where visualized. ABDOMINAL AORTA AND IVC: Visualized portions normal caliber. ASCITES: None seen. IMPRESSION: Mild hepatic steatosis. No gallstones were visible on the current exam. DATA REPOSITORY:
== END 2025-03-04 01:11 ==
LOC: DI 00:52
PROVIDERS: PCP Nurse Practitioner; Visit Provider Family Medicine
DX: K76.0 Fatty (change of) liver, not elsewhere classified (principal); R79.89 Other specified abnormal findings of blood chemistry
CPT/HCPCS: 76705

== ENCOUNTER 2025-03-31 00:49 | Outpatient (CLI) | payer MEDICARE, SELFPAY ==
[2025-03-31 16:33] LABS: ALT 159 U/L (16-63); AST 105 U/L (15-37); Albumin 3.4 g/dL (3.4-5.0); Alkaline Phosphatase 83 U/L (46-116); Anion Gap 11.3 mmol/L (3-11); BUN 11 mg/dL (7-18); Bilirubin, Total 1.3 mg/dL (0.2-1.0); CO2 24.7 mmol/L (21.0-32.0); CREATININE 1.3 mg/dL (0.70-1.30); Calcium 8.7 mg/dL (8.5-10.1); Chloride 103 mmol/L (98-107); Estimated GFR 58.73 (mL/min/1.73m2); Glucose 163 mg/dL (74-106); Potassium 3.8 mmol/L (3.5-5.1); Sodium 139 mmol/L (136-145); Total Protein 6.9 g/dL (6.4-8.2)
== END 2025-03-31 00:50 | disposition home or self-care (01) ==
LOC: LBO 00:49
PROVIDERS: Family Medicine; PCP Nurse Practitioner; Referring Provider Nurse Practitioner; Visit Provider Nurse Practitioner
DX: R79.89 Other specified abnormal findings of blood chemistry (principal)
CPT/HCPCS: 36415; 80053

== ENCOUNTER 2025-06-04 08:45 | Outpatient (CLI) | payer MEDICARE, SELFPAY ==
[2025-06-04 08:08] LABS: Abs Immature Grans 0.02 10^3/uL (0.0-0.06); HCT 42.3 % (40.0-50.0); HGB 14.8 g/dL (13.5-17.5); Immature Grans % 0.4 %; MCH 31.2 pg (27.0-33.0); MCHC 35.0 % (32.0-36.0); MCV 89 fL (80-95); MPV 10.1 fL (8.0-11.0); Platelet Count 166 10^3/uL (130-400); RBC 4.74 10^6/uL (4.36-5.78); RDW 12.6 % (11.8-14.1); RDW-SD 41.1 fL; WBC 5.70 10^3/uL (4.4-10.8)
[2025-06-04 08:49] LABS: ALT 168 U/L (16-63); AST 93 U/L (15-37); Albumin 3.3 g/dL (3.4-5.0); Alkaline Phosphatase 72 U/L (46-116); Anion Gap 7.8 mmol/L (3-11); BUN 15 mg/dL (7-18); Bilirubin, Total 1.1 mg/dL (0.2-1.0); CO2 27.2 mmol/L (21.0-32.0); Calcium 8.6 mg/dL (8.5-10.1); Chloride 106 mmol/L (98-107); Estimated GFR 71.77 (mL/min/1.73m2); Glucose 131 mg/dL (74-106); Potassium 4.0 mmol/L (3.5-5.1); Sodium 141 mmol/L (136-145); Total Protein 6.6 g/dL (6.4-8.2)
== END 2025-06-04 08:46 | disposition home or self-care (01) ==
LOC: LBO 08:45
PROVIDERS: PCP Nurse Practitioner; Visit Provider Family Medicine
DX: R74.01 Elevation of levels of liver transaminase levels (principal); Z13.9 Encounter for screening, unspecified; R79.89 Other specified abnormal findings of blood chemistry; N40.1 Benign prostatic hyperplasia with lower urinary tract symptoms; N13.8 Other obstructive and reflux uropathy; N52.9 Male erectile dysfunction, unspecified
CPT/HCPCS: 36415; 80053; 85025

== ENCOUNTER 2025-07-03 09:05 | Outpatient (CLI) | payer MEDICARE, SELFPAY ==
[2025-07-03 08:36] LABS: ALT 136 U/L (16-63); AST 89 U/L (15-37); Albumin 3.3 g/dL (3.4-5.0); Alkaline Phosphatase 74 U/L (46-116); Anion Gap 6.9 mmol/L (3-11); BUN 15 mg/dL (7-18); Bilirubin, Total 0.9 mg/dL (0.2-1.0); CO2 27.1 mmol/L (21.0-32.0); Calcium 8.6 mg/dL (8.5-10.1); Chloride 107 mmol/L (98-107); Estimated GFR 71.77 (mL/min/1.73m2); Glucose 118 mg/dL (74-106); Potassium 3.8 mmol/L (3.5-5.1); Sodium 141 mmol/L (136-145); Total Protein 6.8 g/dL (6.4-8.2)
== END 2025-07-03 09:06 | disposition home or self-care (01) ==
LOC: LBO 09:06
PROVIDERS: PCP Nurse Practitioner; Visit Provider Family Medicine
DX: R79.89 Other specified abnormal findings of blood chemistry (principal); R74.01 Elevation of levels of liver transaminase levels; K74.00 Hepatic fibrosis, unspecified
CPT/HCPCS: 36415; 80053

== ENCOUNTER 2025-08-01 09:13 | Outpatient (CLI) | payer MEDICARE, SELFPAY ==
[2025-08-01 08:59] LABS: ALT 180 U/L (16-63); AST 111 U/L (15-37); Albumin 3.3 g/dL (3.4-5.0); Alkaline Phosphatase 73 U/L (46-116); Bilirubin, Direct 0.3 mg/dL (0.0-0.2); Bilirubin, Total 1.0 mg/dL (0.2-1.0); Total Protein 6.7 g/dL (6.4-8.2)
== END 2025-08-01 09:14 | disposition home or self-care (01) ==
LOC: LBO 09:13
PROVIDERS: PCP Nurse Practitioner; Visit Provider Nurse Practitioner Family
DX: K76.9 Liver disease, unspecified (principal)
CPT/HCPCS: 36415; 80076

== ENCOUNTER 2025-09-23 07:40 | Outpatient (CLI) | payer MEDICARE, SELFPAY ==
[2025-09-23 08:21] LABS: ALT 136 U/L (10-49); AST 80 U/L (<34); Albumin 3.9 g/dL (3.2-5.0); Alkaline Phosphatase 73 U/L (46-116); Bilirubin, Direct 0.3 mg/dL (<=0.3); Bilirubin, Total 0.80 mg/dL (0.2-1.2); Total Protein 6.8 g/dL (5.7-8.2)
== END 2025-09-23 07:41 | disposition home or self-care (01) ==
LOC: LBO 07:40
PROVIDERS: Visit Provider Nurse Practitioner Family
DX: K76.9 Liver disease, unspecified (principal)
CPT/HCPCS: 36415; 80076